=== PATIENT | male | born 1955 | race Caucasian/White ===

== ENCOUNTER 2020-06-29 08:38 | Outpatient (RCR) | payer MEDICARE, SELFPAY ==
[2020-06-29] MEDS: COVID-19 VACC, MRNA(PFIZER)/PF 30 MCG/0.3 ML SYRINGE IM (07:50)
[2020-07-20] MEDS: COVID-19 VACC, MRNA(PFIZER)/PF 30 MCG/0.3 ML SYRINGE IM (07:24)
== END 2020-06-29 23:59 ==
LOC: IMMUN 08:38
PROVIDERS: PCP Student in an Organized Health Care Education/Training Program; Visit Provider Family Medicine
DX: Z23 Encounter for immunization (principal)
CPT/HCPCS: 0001A; 0002A

== ENCOUNTER 2024-08-26 19:57 | Emergency (ER) | payer MEDICARE, SELFPAY ==
[2024-08-26 20:00] VITALS: BP 166/90; PULSE 99; RESP 18; TEMP 36.4; O2SAT 97; BMI 27.1
--- NOTE | 2024-08-26 20:08 | ED.RN ---
Pt refused to answer the majority of triage and assessment questions, charting done accordingly. notified.
--- NOTE | 2024-08-26 20:20 | EKG12_ITS ---
Test Reason : DYSRHYTHMIA Blood Pressure : */* mmHG Vent. Rate : 106 BPM Atrial Rate : 106 BPM P-R Int : 166 ms QRS Dur : 100 ms QT Int : 336 ms P-R-T Axes : 64 38 57 degrees QTcB Int : 446 ms Sinus tachycardia Possible Left atrial enlargement Incomplete right bundle branch block Borderline ECG Confirmed by ANYI GOLDEN, BARRINGTON ([id number]), editor & co founder VIKTORIA NEWTON ([id number]) on 08/27/2024 8:19:59 AM Referred By: Confirmed By: BARRINGTON DE SANTIAGO MD
--- NOTE | 2024-08-26 20:21 | EX.ED.VIS.PS ---
HPI HPI - Psych History of Present Illness Chief Complaint: Mental Health Informant: patient, EMS and police/workers compensation paralegal Narrative Narrative: 69-year-old male lives alone, passersby found him rolling around in the yard yelling so they called 911. According to police he was lying prone on the front steps of his porch yelling, and was near a large knife and firearm. He apparently was talking about killing the political system as he was waving a knife around, sustained some lacerations, difficult to tell whether they were accidental or on purpose since the patient is unwilling to discuss any details. When asked what happened prior to coming here to the hospital he just laughs and looks away. Concern was for suicidal gesture prior to coming here, when they asked him if he wanted to kill himself he just said that he did not care if he . He admits to having some alcohol, but not a lot and denies using any other drugs. Police confiscated a firearm and a knife from the patient at the scene. 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 He also states that his is recently and so he lives alone. [facility] Medical History PTSD (post-traumatic stress disorder) Home Medications ?Medication ?Instructions ?Recorded ?Last Taken ?Type lorazepam 0.5 mg tablet 0.5 mg PO BID PRN 08/26/24 Unknown History methocarbamol 500 mg tablet 500 mg PO BID PRN PRN low back pain 08/26/24 Unknown History zolpidem 10 mg tablet 10 mg PO QHS PRN PRN insomnia 08/26/24 Unknown History Allergy/AdvReac Type Severity Reaction Status Date / Time No Known Allergies Allergy Verified 08/26/24 19:59 Social History Smoking Status: Unknown if ever smoked ROS ROS ED Constitutional Constitutional ED: Denies chills or fever(s) Eyes Eyes: Denies change in vision or diplopia ENT ENT ED: Denies rhinorrhea or sore throat Cardiovascular Cardiovascular: Denies chest pain or palpitations Respiratory/Chest Respiratory/Chest: Denies cough or dyspnea Gastrointestinal Gastrointestinal: Denies abdominal pain, diarrhea, nausea or vomiting Genitourinary Genitourinary ED: Denies dysuria or hematuria Musculoskeletal Musculoskeletal: Denies back pain or neck pain Integumentary Denies abscess or rash Neurologic Neurologic: Denies headache(s), paresthesias or weakness EXAM Physical Exam Const Vital Signs: 08/26/24 20:00 Temperature 97.6 F L Temperature Source Temporal Pulse Rate 99 Respiratory Rate 18 Blood Pressure 166/90 H Blood Pressure Mean 115 Pulse Ox 97 Oxygen Delivery Method Room Air Positive well nourished and well developed General Appearance ED: well developed and NAD HEENT Reports moist mucous membranes normocephalic and atraumatic Eyes PERRL and EOMs intact bilaterally Neck full ROM and supple Chest Wall Chest Narrative: Left upper chest wall abrasions linear, parallel. Resp normal respiratory effort and clear to auscultation bilaterally Cardio regular rate, regular rhythm and no murmurs GI non-tender and non-distended Auscultation: normoactive bowel sounds Palpation: soft Back/Spine no CVA tenderness General Back: other FROM Extremity Extremity Narrative: Partial-thickness laceration x 2 left dorsal wrist General Extremety ED: Negative for edema, pulses abnormal or tenderness General Extremity: Negative for edema or pulses abnormal Neuro oriented x3, CN's II-XII intact bilaterally and no sensory deficits noted Sensorium / Orientation: awake and alert Motor Exam: strength 5/5 throughout Psych Psych Narrative: Labile emotions. Laughing. Seems intoxicated. Reserved with regards to questions regarding his psychiatric wellbeing. Skin no rashes or lesions noted and no wounds MDM MDM MDM Narrative Medical decision making narrative: Labs obtained, his drug screen is negative, his alcohol is 129 which is too high for him to be evaluated by social work right now. His lacerations are superficial, I had nursing cleanse and dressed them with bacitracin, none of them are deep enough to require suture/repair. Patient became very agitated, physically trying to leave the room and yelling at staff threatening them, and was not redirectable verbally, requiring Geodon for sedation, and soft restraints from the nurses which at this time will be continued because the patient is still resisting and yelling. Other than the alcohol level, his labs are unremarkable and he is medically cleared, blood pressure/vital signs and exam benign otherwise. Checked out to night physician he will need to be evaluated by crisis after his alcohol level comes down. Lab Data Attestation: I reviewed the patient's lab results. Labs: Laboratory Results - last 24 hr 08/26/24 08/26/24 20:14 20:35 WBC 8.0 RBC 4.71 Hgb 14.1 Hct 40.0 MCV 84.9 MCH 29.9 MCHC 35.3 RDW Std Deviation 37.7 RDW Coeff of [place] 12.3 Plt Count 257 MPV 8.3 Immature Gran % (Auto) 0.100 Neut % (Auto) 56.3 Lymph % (Auto) 29.6 [place] % (Auto) 9.4 Eos % (Auto) 3.2 Baso % (Auto) 1.4 H Absolute Neuts (auto) 4.5 Absolute Lymphs (auto) 2.37 Nucleated RBC % 0 PT 12.7 INR 0.9 Sodium 138 Potassium 3.7 Chloride 102 Carbon Dioxide 23.0 Anion Gap 13 BUN 12 Creatinine 0.88 Estim Creat Clear Calc 65.04 Est GFR (MDRD) Non-Af 92 BUN/Creatinine Ratio 13.7 Glucose 105 H Calcium 9.6 Total Bilirubin 0.41 AST 36 ALT 28 Alkaline Phosphatase 71 Total Protein 7.5 Albumin 4.8 Globulin 2.7 Albumin/Globulin Ratio 1.8 Urine Opiates Screen NEGATIVE U Buprenorphine Qual NEGATIVE Ur Oxycodone Screen NEGATIVE Urine Methadone Screen NEGATIVE Urine Fentanyl Screen NEGATIVE Ur Barbiturates Screen NEGATIVE Ur Phencyclidine Scrn NEGATIVE Ur Amphetamines Screen NEGATIVE U Benzodiazepines Scrn NEGATIVE Urine Cocaine Screen NEGATIVE U Cannabinoids Screen NEGATIVE Ethyl Alcohol 129.0 H Rhythm Strip Rhythm Strip: Sinus Rhythm Rate: 105 Ectopy: None EKG Initial EKG: Attestation: I personally reviewed and interpreted this EKG as follows: Interpretation: No Acute Injury Pattern and Sinus Tachycardia Comments: Nml axis & intervals; nml EKG Management Discussion w/another healthcare provider: Behavioral health Discharge Plan Triage Chief Complaint: Mental Health ED Provider: Baudilio Bravo Dx/Rx/DC Orders Clinical Impression: Suicide gesture, Depression, Agitation, Alcohol intoxication, Laceration of left wrist, Laceration of left chest wall Prescriptions: No Action methocarbamol 500 mg tablet 500 mg PO BID PRN PRN (Reason: low back pain) lorazepam 0.5 mg tablet 0.5 mg PO BID PRN zolpidem 10 mg tablet 10 mg PO QHS PRN PRN (Reason: insomnia) Primary Care Provider: Sampson Olivarez Referrals: Sampson Olivarez, DO [Primary Care Provider] - Print Language: [place]
--- NOTE | 2024-08-26 20:46 | ED.RN ---
This RN attempted to complete the patient's medication reconciliation. However, the patient refused to answer any questions for this RN. notified.
[2024-08-26 21:01] LABS: Absolute Lymphocyte Count 2.37 X10^3/uL (0.83-4.51); Absolute Neutrophil Count 4.5 X10^3/uL (2.0-7.7); Basophil# 0.11 X10^3/uL; Basophil% 1.4 % (0-1); Eosinophil# 0.26 X10^3/uL; Eosinophils% 3.2 % (0-5); Hemoglobin 14.1 g/dL (13.0-16.5); International Normalized Ratio 0.9; Lymphocyte # 2.37 X10^3/ul (0.83-4.51); Lymphocyte % 29.6 % (19-41); Mean Corp Hgb Conc 35.3 g/dL (32-36); Mean Corpuscular Hgb 29.9 pg (27.0-32.0); Mean Corpuscular Volume 84.9 fL (80-94); Mean Platelet Vol. 8.3 fl (6.2-12.0); Monocyte# 0.75 X10^3/uL; Monocyte% 9.4 % (0-10); NRBC Flagged by Analyzer 0 % (0-5); Neutrophil # 4.51 X10^3/uL (2.7-7.7); Neutrophil % 56.3 % (47-70); Platelet Count 257 K/mm3 (150-450); Prothrombin Time (Protime)PT. 12.7 SECONDS (11.7-14.9); RBC Distribution Width CV 12.3 % (11.6-14.6); RBC Distribution Width SD 37.7 fl (35.1-43.9); Red Blood Count 4.71 M/mm3 (4.6-6.2)
[2024-08-26] MEDS: Ziprasidone IM 20 MG/ML VIAL IM (21:20)
[2024-08-26 21:21] LABS: Amphetamine Urine NEGATIVE (<1000 ng/mL); Barbiturate Urine NEGATIVE (< 200 ng/mL); Benzodiazepine Urine NEGATIVE (< 200 ng/mL); Buprenorphine Urine NEGATIVE (< 200 ng/mL); Cocaine Urine NEGATIVE (< 300 ng/mL); Fentanyl, Urine NEGATIVE; Methadone Urine NEGATIVE (< 300 ng/mL); Opiates Urine NEGATIVE (< 300 ng/mL); Oxycodone, Urine NEGATIVE (< 100 ng/mL); PCP Urine NEGATIVE (< 25 ng/mL); THC Urine NEGATIVE (< 50 ng/mL)
[2024-08-26 21:22] LABS: ALB/GLOB Ratio 1.8 RATIO (0.9-2.4); AST(SGOT) 36 U/L (<=37); Alanine Aminotransfer ALT/SGPT 28 U/L (<=46); Albumin, Serum 4.8 g/dL (3.4-4.8); Alkaline Phosphatase 71 U/L (40-129); Anion Gap 13 (5-15); BUN 12 mg/dL (4-19); BUN/Creat Ratio 13.7 RATIO (10-20); Calcium,Total 9.6 mg/dL (7.6-11.0); Chloride 102 mmol/L (98-108); Creatinine, Serum 0.88 mg/dL (0.70-1.20); EST Glomerular Filtration Rate 92 (>60); Estimated Creatinine Clearance 65.04 ml/min (50-250); Globulin 2.7 g/dL (2.2-4.2); Glucose 105 mg/dL (70-99); Potassium 3.7 mmol/L (3.3-5.1); Protein, Total 7.5 g/dL (5.9-8.4); Sodium Level 138 mmol/L (133-145); Total Bilirubin 0.41 mg/dL (0.00-1.30)
--- NOTE | 2024-08-26 21:25 | ED.RN ---
The patient was yelling and threatening staff, trying to get out of bed. Staff attempted to redirect patient. Stephen ordered, when attempting to medicate the patient, the patient continued to yell and threaten staff. Stating I ain't doing any of this shit and you can't make me do any of this shit. I ain't listening to you and I ain't ever going to listen to you fucking cunt. Patient ripped off his bandages and attempted to get out of bed. Hospital security at bedside to assist in redirecting and medicating the patient. The patient refused to cooperate with staff, continuing to threaten and yell at staff. 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 Unable to redirect and calm down the patient safely, locked restraints applied at this time. notified.
[2024-08-26 22:00] VITALS: BP 115/64; PULSE 105; RESP 18; O2SAT 95
[2024-08-26 23:00] VITALS: BP 142/78; PULSE 94; RESP 18; TEMP 36.7; O2SAT 98
[2024-08-27 00:53] LABS: Alcohol, Blood (Medical)-Serum 63.9 mg/dL (<=10.0)
[2024-08-27 05:54] VITALS: BP 129/60; PULSE 89; RESP 16; TEMP 36.7; O2SAT 98
[2024-08-27] MEDS: Ondansetron ODT 4 MG Tablet PO (05:57)
[2024-08-27] MEDS: Ibuprofen 600 MG Tablet PO (06:03)
--- NOTE | 2024-08-27 06:05 | RAD_ITS ---
EXAM: Elbow minimum three views x-ray CLINICAL HISTORY: Injury COMPARISON: None available TECHNIQUE: Three views left elbow FINDINGS: Study is limited with obliquity and accentuated flexion on the lateral view. No fracture or dislocation identified. No obvious joint effusion seen. The joint spaces appear within limits. Soft tissues appear unremarkable. RAD/Elbow min 3 Views IMPRESSION: Study is limited with obliquity and accentuated flexion on the lateral view. N o fracture or dislocation identified. No obvious joint effusion seen. Reading Location: [id number]
--- NOTE | 2024-08-27 10:10 | ED.RN ---
report called by previous RN. Family informed of patients discharge, belongings given to family. fourth officer updated family on firearm location.
== END 2024-08-27 10:21 ==
PROVIDERS: Emergency Medicine; Emergency Provider Emergency Medicine; PCP Student in an Organized Health Care Education/Training Program; Visit Provider Emergency Medicine
DX: S61.512A Laceration without foreign body of left wrist, initial encounter (principal); F10.129 Alcohol abuse with intoxication, unspecified; F32.A Depression, unspecified; R45.851 Suicidal ideations; Z79.899 Other long term (current) drug therapy; S21.112A Laceration without foreign body of left front wall of thorax without penetration into thoracic cavity, initial encounter; R45.1 Restlessness and agitation; X58.XXXA Exposure to other specified factors, initial encounter; F43.10 Post-traumatic stress disorder, unspecified
CPT/HCPCS: 36415; 73080; 80053; 80307; 82077; 85025; 85610; 93005; 96372; 99285; J3486